=== PATIENT | female | born 1940 | race Caucasian/White ===

== ENCOUNTER 2022-11-09 11:36 | Outpatient (CLI) | payer MEDICARE, BC, SELFPAY ==
[2022-11-09 16:16] LABS: Chloride* 103 mmol/L (96-114); Sodium* 137 mmol/L (135-149)
[2022-11-09 16:17] LABS: Potassium* 4.7 mmol/L (3.6-5.1)
[2022-11-09 16:19] LABS: Alanine Aminotransferase* 15 U/L (4-35); Carbon Dioxide* 28 mmol/L (20-32); Cholesterol* 161 mg/dL (90-199); Creatinine* 0.9 mg/dL (0.5-1.5); Estimated Glomerular Filt Rate 63 ml/min
[2022-11-09 16:20] LABS: Blood Urea Nitrogen* 21 mg/dL (7-30); Glucose* 105 mg/dL (60-115); HDL Cholesterol* 53 mg/dL (>=50); LDL Cholesterol Calculated 64 mg/dL (<100); Triglycerides* 220 mg/dL (40-149)
[2022-11-09 16:33] LABS: Vitamin D 25 Hydroxy* 30 ng/mL (30-80)
[2022-11-09 17:06] LABS: Vitamin B12* 985 pg/mL (243-894)
== END 2022-11-09 11:37 | disposition home or self-care (01) ==
PROVIDERS: PCP Family Medicine; Visit Provider Family Medicine
DX: I10 Essential (primary) hypertension (principal); E03.9 Hypothyroidism, unspecified; E53.8 Deficiency of other specified B group vitamins; E55.9 Vitamin D deficiency, unspecified; E78.5 Hyperlipidemia, unspecified; K76.0 Fatty (change of) liver, not elsewhere classified; I48.91 Unspecified atrial fibrillation
CPT/HCPCS: 80048; 80061; 82306; 82607; 84443; 84460

== ENCOUNTER 2022-11-26 14:48 | Emergency (ER) | payer MEDICARE, BC, SELFPAY ==
[2022-11-26] VITALS (11 sets, daily range): BP systolic 150–211; BP diastolic 84–99; PULSE 59–68; RESP 18–20; TEMP 36.1; O2SAT 96–99; BMI 35.3
--- NOTE | 2022-11-26 15:17 | ED_ITS ---
HPI - General Adult General Date Seen: 11/26/22 Chief complaint: Lower Extremity Swelling Stated complaint: Swelling left leg Time Seen by Provider: 11/26/22 14:55 Source: patient and family Mode of arrival: ambulatory Limitations: no limitations History of Present Illness HPI narrative: Patient is an 82-year-old woman who says that she has a history of neuropathy in her feet. A couple of weeks ago, she says that Dr. Burkett started her on gabapentin 100 mg nightly. She says that she is not tolerating this medication well. Ever since then, she says that she is feeling like she has more fluid in her legs, and she has developed pain in her medial left knee. Her daughter says that she seems out of it on gabapentin. She wants to taper off of this medication. She feels like she needs to get rid of the fluid in her legs as it is uncomfortable. She has not had shortness of breath or chest pain. Also she notes that her blood pressure is higher than usual. She is also worried she might have a blood clot. She does take Xarelto for atrial fibrillation. She has not had any other leg or calf pain aside from the medial knee pain. There has been no erythema or warmth noted in the calves. She tells me that she takes 2 water pills for the fluid in her legs, but I only see Lasix listed in her med list. Related Data Home Medications Medication Instructions Recorded Confirmed cholecalciferol (vitamin D3) 1,250 1,250 mcg PO QWEEK 08/10/22 11/09/22 mcg (50,000 unit) capsule mecobalamin (vitamin B12) 1,000 1,000 mcg PO QDAY 11/09/22 11/09/22 mcg chewable tablet Previous Rx's Medication Instructions Recorded furosemide 40 mg tablet 40 mg PO QAM #90 tabs 11/09/22 gabapentin 100 mg capsule 100 mg PO QHS #60 caps 11/09/22 levothyroxine 112 mcg tablet 112 mcg PO QDAY #90 tabs 11/09/22 losartan 100 mg tablet 100 mg PO QDAY #90 tabs 11/09/22 rivaroxaban 20 mg tablet 20 mg PO QPM #90 tabs 11/09/22 rosuvastatin 10 mg tablet 10 mg PO QDAY #90 tabs 11/09/22 sotalol 80 mg tablet 80 mg PO BID #180 tabs 11/09/22 potassium chloride 20 mEq See Rx Instructions PO BID #90 tabs 11/10/22 tablet,extended release Allergies Allergy/AdvReac Type Severity Reaction Status Date / Time lisinopril Allergy Unknown Unknown Verified 11/26/22 15:03 lovastatin Allergy Unknown Unknown Verified 11/26/22 15:03 Review of Systems Status of ROS: Reports: 10 or more systems reviewed and unremarkable except as noted in History and below [facility] Medical History (Updated 11/26/22 @ 16:16 by Serina Gilbert MD) Atrial fibrillation B12 deficiency Essential (primary) hypertension Fatty liver History of uterine cancer Hx of colonic polyp Hyperlipidemia Hypothyroidism Peripheral neuropathy Vitamin D deficiency Surgical History (Updated 08/10/22 @ 10:50 by Michelle Pacheco ([facility])) History of open reduction and internal fixation (ORIF) procedure History of total abdominal hysterectomy and bilateral salpingo-oophorectomy Social History (Updated 08/10/22 @ 10:51 by Michelle Pacheco ([facility])) Narrative: , kids, non-smoker, No EtOH Smoking Status: Never smoker Little interest or pleasure in doing things: not at all Feeling down, depressed, or hopeless: more than half the days (winter) Exam Narrative: Exam Narrative: Vital signs as noted above. In general, an alert, nontoxic elderly woman. She is breathing easily. Head: Normocephalic, atraumatic. Eyes: Pupils are equal reactive. Extraocular movements are full. Conjunctivae are normal. ENT: Mucous membranes are moist. Neck: Supple without lymphadenopathy. Heart: Regular rate and rhythm. No murmur or rub. Lungs: Clear bilaterally. No increased work of breathing, crackles or wheezes. Extremities: She has trace pitting edema in her legs bilaterally, her legs are somewhat large in general. She does not have any calf tenderness. She has point tenderness over the medial knee on the left. There is no effusion or erythema. Neurologic: Patient is alert and oriented to person and place. Speech is fluent. Face is symmetric. Moves all extremities equally. Affect: Normal. Skin: Warm and dry. Well perfused. Const: Vital Signs, click to edit/add: Vital Signs - 24 hr 11/26/22 14:57 11/26/22 15:31 11/26/22 16:10 Temperature 97.0 F L Pulse Rate 68 Pulse Rate [Pulse Oximeter] 63 Respiratory Rate 18 20 Blood Pressure 175/84 H 158/96 H Blood Pressure [Ri ght Upper Arm] 211/90 H Pulse Oximetry 98 98 Oxygen Delivery Me thod Room Air 11/26/22 16:24 11/26/22 16:25 11/26/22 16:30 Temperature Pulse Rate 61 62 Pulse Rate [Pulse Oximeter] Respiratory Rate Blood Pressure 162/94 H Blood Pressure [Ri ght Upper Arm] Pulse Oximetry 97 98 Oxygen Delivery Me thod 11/26/22 16:32 Temperature Pulse Rate 62 Pulse Rate [Pulse Oximeter] Respiratory Rate Blood Pressure 168/93 H Blood Pressure [Ri ght Upper Arm] Pulse Oximetry 99 Oxygen Delivery Me thod Documenting provider has reviewed patient's vital signs: yes Course Course Hospital Course: I have discussed with her that I think it is perfectly reasonable for her to discontinue the gabapentin. She is on a very small dose and I do not think she needs to taper off of this I think she can just stop. In terms of her perceived increase fluid in her legs, I am going to just check a couple of labs and if renal function and electrolytes look okay, we can give her an extra dose of Lasix here and perhaps increase her dose for a couple of days and trying to pull off a little extra fluid. I am also going to just check her TSH here and make sure that she is therapeutic on her thyroid replacement. She is not short of breath, lungs are clear, O2 sats are normal. I do not have any reason to suspect that she is significantly fluid overloaded from a cardiac standpoint. She is markedly hypertensive today, will recheck that, will need to have her follow up with primary care for reassessment of her blood pressure and also she can discuss an alternative medication for her neuropathy if she would like. I am not concerned about DVT in this patient. She is anticoagulated with Xarelto, has symmetric lower extremity swelling, with some focal pain in her medial knee. Clinically, symptoms are not suggestive of DVT. Basic metabolic panel is normal, BUN is 22, creatinine is 0.9. I do think there is room to give her a little extra Lasix for a few days. I gave her 40 mg IV here. Her BNP is elevated mildly at 647. Her TSH is still pending at this time. Plan will be for discharge home. I have told her that she can increase her Lasix by 20 mg a day for few days. I would like her to follow up with Dr. Thad Vines in the next week or so to reassess blood pressure, edema, and peripheral neuropathy. Return for significant changes such as severe edema, erythema, pain, fever etcetera. Vital Signs Vital signs: Initial Vital Signs Temperature 97.0 F L 11/26/22 14:57 Temperature Source Temporal Artery Scan 11/26/22 14:57 Pulse Rate 63 11/26/22 14:57 Pulse Rhythm 11/26/22 14:57 Pulse Strength 3+ Normal 11/26/22 14:57 Respiratory Rate 18 11/26/22 14:57 Blood Pressure 211/90 H 11/26/22 14:57 Blood Pressure Mean 130 11/26/22 14:57 Blood Pressure Position Sitting 11/26/22 14:57 Pulse Oximetry 98 11/26/22 14:57 Oxygen Delivery Method 11/26/22 14:57 Vital Signs Temperature 97.0 F L 11/26/22 14:57 Pulse Rate 63 11/26/22 14:57 Respiratory Rate 18 11/26/22 14:57 Blood Pressure 211/90 H 11/26/22 14:57 Pulse Oximetry 98 11/26/22 14:57 Oxygen Delivery Method 11/26/22 14:57 Temperature 97.0 F L 11/26/22 14:57 Pulse Rate 59 L 11/26/22 16:53 Respiratory Rate 20 11/26/22 16:10 Blood Pressure 150/99 H 11/26/22 17:16 Pulse Oximetry 96 11/26/22 16:53 Oxygen Delivery Method 11/26/22 14:57 Medical Decision Making Lab Data Labs: Lab Results 11/26/22 11/26/22 Range/Units 15:30 15:30 Sodium 138 (135-149) mmol/L Potassium 3.7 (3.6-5.1) mmol/L Chloride 102 (96-114) mmol/L Carbon Dioxide 32 (20-32) mmol/L BUN 22 (7-30) mg/dL Creatinine 0.9 (0.5-1.5) mg/dL Estimated Creat Clear 30.08 Estimated GFR 63 ml/min Glucose 122 H (60-115) mg/dL Calcium 8.9 (8.4-10.6) mg/dL NT-Pro-B Natriuret Pep 647 pg/mL TSH 1.890 (0.270-4.200) uIU/mL Discharge Plan Discharge Clinical Impression: Bilateral lower extremity edema, Peripheral neuropathy Patient Disposition: Home, Self-Care Condition: Stable Instructions: Peripheral Neuropathy (ED), Leg Edema (ED) Additional Instructions: Okay to take an extra 20 mg of Lasix for the next few days. Follow-up with Dr. Burkett in the next week or 2 to recheck blood pressure, neuropathy, edema. Return for worsening swelling, new symptoms such as redness, fever, or other worsening symptoms. Prescriptions: No Action mecobalamin (vitamin B12) 1,000 mcg tablet,chewable 1,000 mcg PO QDAY gabapentin 100 mg capsule 100 mg PO QHS Qty: 60 1RF Rx Instructions: 1 QHS x 2 weeks then 2 QHS losartan 100 mg tablet 100 mg PO QDAY Qty: 90 3RF furosemide 40 mg tablet 40 mg PO QAM Qty: 90 3RF rivaroxaban 20 mg tablet 20 mg PO QPM Qty: 90 3RF Rx Instructions: must administer with evening meal rosuvastatin 10 mg tablet 10 mg PO QDAY Qty: 90 3RF sotalol 80 mg tablet 80 mg PO BID Qty: 180 3RF cholecalciferol (vitamin D3) 1,250 mcg (50,000 unit) capsule 1,250 mcg PO QWEEK levothyroxine 112 mcg tablet 112 mcg PO QDAY Qty: 90 0RF potassium chloride 20 mEq tablet extended release See Rx Instructions PO BID Qty: 90 2RF Rx Instructions: orally twice a day; 2 Qam and 1 Qpm Follow Up/Referrals: Matt Burkett MD [Primary Care Provider] - Stand Alone Forms: [employer] Info Instructions
[2022-11-26 15:47] LABS: Chloride* 102 mmol/L (96-114)
[2022-11-26 15:48] LABS: Potassium* 3.7 mmol/L (3.6-5.1); Sodium* 138 mmol/L (135-149)
[2022-11-26 15:50] LABS: Creatinine* 0.9 mg/dL (0.5-1.5); Est. Creatinine Clearance* 30.08; Estimated Glomerular Filt Rate 63 ml/min
[2022-11-26 15:51] LABS: Blood Urea Nitrogen* 22 mg/dL (7-30); Calcium* 8.9 mg/dL (8.4-10.6); Carbon Dioxide* 32 mmol/L (20-32); Glucose* 122 mg/dL (60-115)
[2022-11-26 16:01] LABS: NT Pro B Type NatriureticPept* 647 pg/mL
[2022-11-26] MEDS: FUROSEMIDE 10 MG/ML inj 40 MG IVP (16:25)
== END 2022-11-26 17:21 | disposition home or self-care (01) ==
PROVIDERS: Emergency Provider Emergency Medicine; PCP Family Medicine
DX: R60.0 Localized edema (principal); G62.9 Polyneuropathy, unspecified
CPT/HCPCS: 36415; 80048; 83880; 84443; 96374; 99283; 99284; J1940

== ENCOUNTER 2023-04-14 12:35 | Outpatient (CLI) | payer MEDICARE, BC, SELFPAY | END 2023-04-14 12:36 | disposition home or self-care (01) | PROVIDERS: PCP Family Medicine; Visit Provider Family Medicine | DX: I10 Essential (primary) hypertension (principal); E03.9 Hypothyroidism, unspecified; E78.5 Hyperlipidemia, unspecified | CPT/HCPCS: 80048 ==

== ENCOUNTER 2023-06-15 11:01 | Outpatient (CLI) | payer MEDICARE, BC, SELFPAY | END 2023-06-15 11:02 | disposition home or self-care (01) | PROVIDERS: PCP Family Medicine; Visit Provider Family Medicine | DX: I11.0 Hypertensive heart disease with heart failure (principal); I50.9 Heart failure, unspecified; E03.9 Hypothyroidism, unspecified; E78.5 Hyperlipidemia, unspecified; I48.0 Paroxysmal atrial fibrillation; Z79.01 Long term (current) use of anticoagulants; E55.9 Vitamin D deficiency, unspecified | CPT/HCPCS: 80048; 83880 ==

== ENCOUNTER 2023-10-13 13:27 | Outpatient (CLI) | payer MEDICARE, BC, SELFPAY | END 2023-10-13 13:28 | disposition home or self-care (01) | PROVIDERS: PCP Family Medicine; Visit Provider Family Medicine | DX: E78.2 Mixed hyperlipidemia (principal); I10 Essential (primary) hypertension; E53.8 Deficiency of other specified B group vitamins; E55.9 Vitamin D deficiency, unspecified; E03.9 Hypothyroidism, unspecified; I50.9 Heart failure, unspecified | CPT/HCPCS: 80048; 80061; 82607; 84443; 85025 ==

== ENCOUNTER 2024-01-18 12:51 | Outpatient (CLI) | payer MEDICARE, BC, SELFPAY ==
--- OUTSIDE RECORDS SUMMARY | 2024-01-18 12:58 | XMS_ITS | Clinical Summary ---
Author Name Unknown Organization [facility] Address [place], [place] [address] Care Team Providers Care Line Tender Flakeboard Name Role Phone Matt Burkett MD Primary Care Provider + Allergies Active Allergy Reactions Criticality Noted Date Comments Lisinopril Cough 06/06/2020 Lovastatin Palpitations 11/14/2016 Medications Medication Sig Dispensed Refills Start Date End Date Status acetaminophen (TYLENOL EXTRA STRGTH) 500 mg tablet Take 2 tablets by mouth every 6 hours if needed. Max acetaminophen dose: 4000mg in 24 hrs. 0 12/06/2019 Active WalkerIndications:Af tercare following surgery for injury or trauma Walker with wheels,seat,hand brakes,and basket for home use. Length of need: 6 months. 1 Device 02/05/2020 Active rivaroxaban (Xarelto) 20 mg tabletIndications:At rial flutter, unspecified type (HC) Take 1 Tablet (20 mg) by mouth once daily with evening meal. 90 Tablet 3 10/14/2022 Active losartan (COZAAR) 100 mg tabletIndications:HT N (hypertension) Take 1 Tablet (100 mg) by mouth once daily. 90 Tablet 3 10/14/2022 Active potassium chloride (K-DUR) 20 mEq Extended-Release tabletIndications:Es sential hypertension Take 2 Tablets (40 mEq) by mouth two times daily with meals. More refills provided at completion of appointment scheduled 10/14/[address] Artis. 360 Tablet 3 10/14/2022 Active rosuvastatin (CRESTOR) 10 mg tabletIndications:Ab normal EKG,Fatty liver,Vascular calcification,Other hyperlipidemia Take 1 Tablet (10 mg) by mouth at bedtime. 90 Tablet 3 10/14/2022 Active sotaloL (BETAPACE) 80 mg tabletIndications:At rial flutter, unspecified type (HC) Take 1 Tablet (80 mg) by mouth every 12 hours. 180 Tablet 3 10/14/2022 Active doxazosin (CARDURA) 2 mg tablet Take 2 mg by mouth at bedtime. 03/15/2023 Active levothyroxine (SYNTHROID) 112 mcg tablet Take 112 mcg by mouth once daily. 03/16/2023 Active furosemide (LASIX) 80 mg tablet Take 80 mg by mouth every morning. 10/29/2023 Active spironolactone (ALDACTONE) 25 mg tablet Take 25 mg by mouth once daily. 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 Reynoso 12/06/2019 Right medial tibial plateau fracture 11/15/2019 PAF (paroxysmal atrial fibri llation) and flutter. Now on sotalol 80 bid + Xarelto 12/06/2018 Abnormal EKG 12/05/2018 Fatty liver 12/05/2018 Vascular calcifications - seen on CT 12/05/2018 Essential hypertension 05/04/2018 ACP (advance care planning) 11/17/2016 Overview: Full code Wide-complex tachycardia 11/14/2016 Class 1 obesity in adult 08/05/2016 Nonspecific abnormal electrocardiogram (ECG) (EK G) 01/04/2009 Hyperlipidemia Unspecified hypothyroidism Vitamin B 12 deficiency Polyp of colon Abnormal CT scan, pelvis Resolved Problems Problem Noted Date Diagnosed Date Resolved Date HTN (hypertension) 8 Encounters Date Type Department Care Team Description 11/03/2023 11:30 AM PIECE WORKER Office Visit [facility] [address] [facility] [place] [id number] Berny Martinez MD Follow Up (6 month follow up ) 11/03/2023 Travel from Last 3 Months Immunizations Name Administration Dates Next Due COVID-19 vaccine (SeeToo-Bio NTech 30mcg/0.3mL) PF, MDV 12/26/2020,12/05/2020 Influenza A (H1N1), Inactivated 10/29/2009 Influenza, High-dose Inactivated 07/16/2016,11/0 03/2015,07/18/2014 Influenza, IIV3 (Age >=3 years) 07/11/2013,08/12,07/29/2009 Influenza, Inactivated AIIV4 (Age 65+ Years) Preserv Free 07/11/2020 Influenza, Inactivated IIV3 (Age 65+ Years) Preserv Free 07/25/2019,08/05/2018,07/19/2017 Pneumococcal Poly,23-Valent (Pneumovax) 07/28/20 07 Pneumococcal conj 13-Valent (Prevnar 13) 015 Td (Age >=7 Years) 12/18/2010 Zoster (Zostavax-ZVL, live) 12/18/2010 Family History Medical History Relation Name Comments Diabetes Brother Diabetes Father Cancer-breast No Family History Relation Name Status Comments Brother Father Social History Tobacco Use Types Packs/Day Years Used Date Smoking Tobacco: Never Smokeless Tobacco: Never Tobacco Cessation:Counseling Given: No Alcohol Use Standard Drinks/Week Comments No 0 (1 standard drink = 0.6 oz pur e alcohol) PHQ-2 Answer Date Recorded PHQ-2 Score 0 12/10/2018 Social Connections Answer Date Recorded Frequency of Communication with Friends and Fami ly 0 04/05/2023 Financial Resource Strain Answer Date R ecorded Difficulty of Paying Living Expenses 3 04/05/2023 Difficulty of Paying Living Expenses Not on file 04/05/2023 Food Insecurity Answer Date Recorded Worried About Running Out of Food in the Last Ye ar 1 04/05/2023 Transportation Needs Answer Date Record ed Lack of Transportation (Medical) 1 04/05/2023 Housing Stability Answer Date Recorded Unable to Pay for Housing in the Last Year 1 04/07/2023 Sex and Gender Information Value Date Recorded Sex Assigned at Not on file Gender Identity Not on file Sexual Orientation Not on file Obstetrics History Last Filed Vital Signs Vital Sign Reading Time Taken Comments Blood Pressure 116/68 11/03/2023 11:17 AM PIECE WORKER Pulse 60 11/03/2023 11:17 AM PIECE WORKER Temperature 36.6 ??C (97.9 ??F) 04/08/2023 7:19 AM CD T Respiratory Rate 18 04/08/2023 7:19 AM CDT Oxygen Saturation 98% 11/03/2023 11:17 AM PIECE WORKER Inhaled Oxygen Concentration - - Weight 81.7 kg (180 lb 3.2 oz) 11/03/2023 11:17 AM PIECE WORKER Height 157.5 cm (5' 2) 04/04/2023 10:11 AM CDT Body Mass Index 32.96 04/04/2023 10:11 AM CDT Plan of Treatment Health Maintenance Due Date Last Done Comments Zoster (shingles) series for age 50+ (2 of 3) 02/12/2011 12/18/2010 Medicare Wellness for age 65+ 06/09/2017 06/08/2016 Depression screening for age 12+ 02/02/2019 02/02/2018, 04/29/2017, 06/08/2016, Additional history exists Tetanus booster 12/18/2020 12/18/2010 BMI (ht and wt on same day) for age 18+ 10/01/2022 10/01/2021, 05/14/2021, 03/12/2021, Additional history exists COVID-19 vaccine series ( season) 2023 08/05/2022, 07/24/2021, 12/26/2020, Additional history exists Influenza for age 65+ 06/11/2024 07/11/2020 , 07/25/2019, 08/05/2018, Additional history exists [facility] Com[facility] 12[facility]18/2006 [facility] Pneumococcal series for age 65+ Completed 5, 07/28/2007 DEXA/DXA scan for age 65+ Completed 2015, 09/28/2011, 09/28/2011 Medical Devices Implanted Type Area Salsa Dance Instructor Device Identifier Shelf Expiration Date Model / Serial / Lot Evos 3.5mm P/A M-P Tibia [address] 8h Implanted:Qty: 1 on 11/16/2019 by Delvis Reynoso MD at [facility] Right: Knee [id number] / / Description:EVOS 3.5MM P/A M -P TIBIA [address] 8H Screw Locking 3.5 X 65 Implanted:Qty: 1 on 11/16/2019 by Delvis Reynoso MD at [facility] Right: Knee [id number] / / Description:SCREW LOCKING 3. 5 X 65 Screw Bone 3.5x38mm Evos Small Cortex Slf Tppng Implanted:Qty: 1 on 11/16/2019 by Delvis Reynoso MD at [facility] Right: Knee [id number] / / Description:SCREW BONE 3.5X3 8MM EVOS SMALL CORTEX SLF TPPNG Screw Bone 3.5x70mm Evos Small Cortex Slf Tppng Implanted:Qty: 1 on 11/16/2019 by Delvis Reynoso MD at [facility] Right: Knee [id number] / / Description:SCREW BONE 3.5X7 0MM EVOS SMALL CORTEX SLF TPPNG Screw Bone 3.5x75mm Evos Small Cortex Slf Tppng Implanted:Qty: 1 on 11/16/2019 by Delvis Reynoso MD at [facility] Right: Knee [id number] / / Description:SCREW BONE 3.5X7 5MM EVOS SMALL CORTEX SLF TPPNG Screw Bone 3.5x28mm Evos Small Cortex Slf Tppng Implanted:Qty: 1 on 11/16/2019 by Delvis Reynoso MD at [facility] Right: Knee [id number] / / Description:SCREW BONE 3.5X2 8MM EVOS SMALL CORTEX SLF TPPNG Screw Bone 3.5x32mm Evos Small Cortex Slf Tppng Implanted:Qty: 1 on 11/16/2019 by Delvis Reynoso MD at [facility] Right: Knee [id number] / / Description:SCREW BONE 3.5X3 2MM EVOS SMALL CORTEX SLF TPPNG Screw Bone 3.5x22mm Evos Small Cortex Slf Tppng Implanted:Qty: 2 on 11/16/2019 by Delvis Reynoso MD at [facility] Right: Knee [id number] / / Description:SCREW BONE 3.5X2 2MM EVOS SMALL CORTEX SLF TPPNG Screw Locking 3.5 Implanted:Qty: 1 on 11/16/2019 by Delvis Reynoso MD at [facility] Right: Knee [id number] / / Description:SCREW LOCKING 3. 5 Explanted Type Area Salsa Dance Instructor Device Identifier Shelf Expiration Date Model / Serial / Lot Screw Bone 3.5x36mm Evos Small Cortex Slf Tppng Explanted:Qty: 1 on 11/16/2019 by Delvis Reynoso MD at [facility] Right: Knee [id number] / / Description:SCREW BONE 3.5X3 6MM EVOS SMALL CORTEX SLF TPPNG Carmenza-Loc K-Wire 1.6mm Explanted:Qty: 2 on 11/16/2019 by Delvis Reynoso MD at [facility] Right: Knee [id number] / / Description:CARMENZA-LOC K-WIRE 1.6MM Procedures Procedure Name Priority Date/Time Associated Diagnosis Comments XR DXA BONE DENSITY 2 SITES AXIAL Routine 06/16/2016 10:53 AM CDT Menopause from Last 3 Months or Most Recently Relevant to Health Maintenance Results * (ABNORMAL) XR DXA BONE DENSITY 2 SITES AXIAL (06/16/2016 10:53 AM CDT) Anatomical Region Laterality Modality Spine, HIPS, HIPL, HIPR Bone Den sitometry Narrative 06/19/2016 1:50 PM CDT Please see scanned document for results of this study. Tr Harrison MD DEXA from Last 3 Months or Most Recently Relevant to Health Maintenance Insurance Payer Benefit Plan / Group Subscriber ID Effective Dates Phone Address Type [facility] PB ONLY [id number] 2019-Presen t [address] [id number] MEDICARE PART B - HB USE ONLY MEDICARE PART B HB ONLY [id number] 2003-Presen t ATTN: CLAIMS [address] [place] [address] MEDICARE PART B - HB USE ONLY MEDICARE PART B HB ONLY [id number] 2003-Presen t ATTN: CLAIMS [address] [place] [address] MEDICARE PART A - HB USE ONLY MEDICARE PART A HB ONLY [id number] 2003-Presen t ATTN: CLAIMS [address] [place] [address] [employer] [place] [employer] [place] [id number] 5-Presen t [address] [place] [address] [employer] [place] [employer] BL[employer] MR PB ONLY [id number] 2021-Presen t [address] [address] [place] [address] [employer] [place] [employer] [place] [id number] 2003- Presen t [address] [place] [address] Advance Directives Documents on File Type Date Recorded Patient Device Sales Consultant Expl anation Healthcare Directive 04/05/2023 023 POLST 11/18/2019 * Full Code (Latest Code Status on File) Date Activated Date Inactivated Comments 04/04/2023 2:40 PM 04/08/2023 1:22 PM Question Answer Comments Code Status Discussion: Reviewed Preferences * Full Code Date Activated Date Inactivated Comments 11/15/2019 8:53 PM 11/18/2019 3:35 PM * Full Code Date Activated Date Inactivated Comments 12/02/2018 8:45 AM 12/02/2018 1:53 PM Question Answer Comments Code Status Discussion: Discussed * Full Code Date Activated Date Inactivated Comments 11/14/2016 7:15 PM 11/17/2016 6:51 PM Question Answer Comments Code Status Discussion: Discussed Care Teams Line Tender Flakeboard Relationship Specialty Start Date End Date Matt Burkett MD [address] [place] [address] PCP - General Family Practice 04/08/23
== END 2024-01-18 12:52 | disposition home or self-care (01) ==
PROVIDERS: PCP Family Medicine; Visit Provider Family Medicine
DX: E53.8 Deficiency of other specified B group vitamins (principal); E55.9 Vitamin D deficiency, unspecified; I10 Essential (primary) hypertension
CPT/HCPCS: 80048; 82306; 82607

== ENCOUNTER 2024-06-26 14:42 | Outpatient (CLI) | payer MEDICARE, BC, SELFPAY ==
--- OUTSIDE RECORDS SUMMARY | 2024-06-26 14:44 | XMS_ITS | Clinical Summary ---
Author Organization [employer] [facility] Address [place], [place] [address] Care Team Providers Care Personal Injury Litigation Paralegal Name Role Phone Matt Burkett MD Primary [...] at bedtime. 90 Tablet 3 10/14/2022 Active levothyroxine (SYNTHROID) 112 mcg tablet Take 112 mcg by mouth once daily. 03/16/2023 Active furosemide (LASIX) 80 mg tablet Take 80 mg by mouth every morning. 10/29/2023 Active spironolactone (ALDACTONE) 25 mg tablet Take 25 mg by mouth once daily. 10/12/2023 Active sotaloL (BETAPACE) 80 mg tabletIndications:At rial flutter, unspecified type (HC) Take 1 Tablet (80 mg) by mouth every 12 hours. 180 Tablet 3 05/03/2024 Active Hospital, Clinic, or Other Facility Administered Medication Ordered Dose Route Frequency Start Date End Date Status cyanocobalamin 1,000 mcg injection (VITAMIN B12)Indications:Vitam in B12 deficiency 1000 mcg IM Q 4 WEEKS (28 days) 12/07/2019 Active Active Problems Problem Noted Date [...] hypertension 05/04/2018 ACP (advance care planning) 11/17/2016 Overview (11/17/2016): Full code Wide-complex tachycardia 11/14/2016 Class 1 obesity in adult 08/05/2016 Nonspecific abnormal electrocardiogram (ECG) (EK G) 01/04/2009 Hyperlipidemia Unspecified hypothyroidism Vitamin B 12 deficiency Polyp of colon Abnormal CT scan, pelvis Resolved Problems Problem Noted Date Diagnosed Date Resolved Date HTN (hypertension) 8 Encounters Date Type Department Care Team Description 05/03/2024 11:30 AM CDT Office Visit [facility] at [address] [phone] Kyara Jain MD Follow Up (6 month) 05/03/2024 Travel from Last 3 Months Immunizations Name Administration Dates Next Due COVID-19 vaccine (Adeptence NTSynerchip 30mcg/0.3mL) ALEJO PALMA 12/26/2020,12/05/2020 Influenza A (H1N1), Inactivated 10/29/2009 Influenza, [...] of Communication with Friends and Fami ly Not on file 04/10/2024 Financial Resource Strain Answer Date R ecorded [...] Sign Reading Time Taken Comments Blood Pressure 118/70 05/03/2024 11:24 AM CDT Pulse 60 05/03/2024 11:24 AM CDT Temperature 36.6 ??C (97.9 ??F) 04/08/2023 7:19 AM CD T Respiratory Rate 18 04/08/2023 7:19 AM CDT Oxygen Saturation 100% 05/03/2024 11: 24 AM CDT Inhaled Oxygen Concentration - - Weight 80.2 kg (176 lb 12.8 oz) 024 11:24 AM CDT Height 157.5 cm (5' 2) 04/04/2023 10:1 1 AM CDT Body Mass Index 32.34 04/04/2023 10:11 AM CDT Plan of Treatment Health Maintenance Due Date Last Done Comments RSV vaccine for adults or (1 - 1-dose 60+ series) 1998 Zoster (shingles) series for age 50+ (2 of 3) 02/12/2011 12/18/2010 Medicare Wellness for age 65+ 06/09/2017 06/08/2016 Depression screening for age 12+ 02/02/2019 02/02/2018, 04/29/2017, 06/08/2016, Additional history exists Tetanus booster 12/18/2020 12/18/2010 BMI (ht and wt on same day) for age 18+ 10/01/2022 10/01/2021, 05/14/2021, 03/12/2021, Additional history exists COVID-19 vaccine series ( season) 2024 08/05/2022, 07/24/2021, 12/26/2020, Additional history exists Influenza for age 65+ 06/11/2024 07/11/2020 , 07/25/2019, 08/05/2018, Additional history exists Tdap Completed 12/18/2006 ([facility]) Pneumococcal series for age 65+ Completed 5, 07/28/2007 DEXA/DXA scan for age 65+ Completed 2015, 09/28/2011, 09/28/2011 Medical Devices Implanted Type Area Information Technology Security Manager Device Identifier Shelf Expiration Date Model / Serial / Lot Evos 3.5mm P/A M-P [address] 8h Implanted:Qty: 1 on 11/16/2019 by Delvis Reynoso MD at [facility] Right: Knee [id number] / / Description:EVOS 3.5MM P/A M -P [address] 8H Screw Locking 3.5 X 65 Implanted:Qty: 1 on 11/16/2019 by Delvis Reynoso MD at [facility] Right: Knee [id number] / / Description:SCREW LOCKING 3. 5 X 65 Screw Bone 3.5x38mm Evos Small Cortex Slf Tppng Implanted:Qty: 1 on 11/16/2019 by Delvis Reynoso MD at [facility] Right: Knee [id number] / / Description:SCREW BONE 3.5X3 8MM EVOS SMALL CORTEX SLF TPPNG Screw Bone 3.5x70mm Evos Small Cortex Slf Tppng Implanted:Qty: 1 on 11/16/2019 by Delvis Reynoso MD at [facility] Right: Knee [id number] / / Description:SCREW BONE 3.5X7 0MM EVOS SMALL CORTEX SLF TPPNG Screw Bone 3.5x75mm Evos Small Cortex Slf Tppng Implanted:Qty: 1 on 11/16/2019 by Delvis Reynoso MD at [facility] Right: Knee [id number] / / Description:SCREW BONE 3.5X7 5MM EVOS SMALL CORTEX SLF TPPNG Screw Bone 3.5x28mm Evos Small Cortex Slf Tppng Implanted:Qty: 1 on 11/16/2019 by Delvis Reynoso MD at [facility] Right: Knee [id number] / / Description:SCREW BONE 3.5X2 8MM EVOS SMALL CORTEX SLF TPPNG Screw Bone 3.5x32mm Evos Small Cortex Slf Tppng Implanted:Qty: 1 on 11/16/2019 by Delivs Reynoso MD at [facility] Right: Knee [id number] / / Description:SCREW BONE 3.5X3 2MM EVOS SMALL CORTEX SLF TPPNG Screw Bone 3.5x22mm Evos Small Cortex Slf Tppng Implanted:Qty: 2 on 11/16/2019 by Delvis Reynoso MD at [facility] Right: Knee [id number] / / Description:SCREW BONE 3.5X2 2MM EVOS SMALL CORTEX SLF TPPNG Screw Locking 3.5 Implanted:Qty: 1 on 11/16/2019 by Delvis Reynoso MD at [facility] Right: Knee [id number] / / Description:SCREW LOCKING 3. 5 Explanted Type Area Information Technology Security Manager Device Identifier Shelf Expiration Date Model / Serial / Lot Screw Bone 3.5x36mm Evos Small Cortex Slf Tppng Explanted:Qty: 1 on 11/16/2019 by Delvis Reynoso MD at [facility] Right: Knee [id number] / / Description:SCREW BONE 3.5X3 6MM EVOS SMALL CORTEX SLF TPPNG Carmenza-Loc K-Wire 1.6mm Explanted:Qty: 2 on 11/16/2019 by Delvis Reynoso MD at [facility] Right: Knee [id number] / / Description:CARMENZA-LOC K-WIRE 1.6MM Procedures Procedure Name Priority Date/Time Associated Diagnosis Comments EKG 12 LEAD Routine 05/03/2024 12:00 AM CDT Atrial flutter, unspecified type (HC) XR DXA BONE DENSITY 2 SITES AXIAL Routine 06/16/2016 10:53 AM CDT Menopause from Last 3 Months or Most Recently Relevant to Health Maintenance Results * EKG 12 LEAD (05/03/2024 12:00 AM CDT) Kyara Jain MD EKG ORD * (ABNORMAL) XR DXA BONE DENSITY 2 SITES AXIAL (06/16/2016 10:53 AM CDT) Anatomical Region Laterality Modality Spine, HIPS, HIPL, HIPR Bone Den sitometry Narrative 06/19/2016 1:50 PM CDT Please see scanned document for results of this study. Tr Harrison MD DEXA from Last 3 Months or Most Recently Relevant to Health Maintenance Advance Directives Documents on File Type Date Recorded Patient Talent Acquisition Manager Expl anation Healthcare Directive 04/05/2023 023 POLST [...] Comments Code Status Discussion: Discussed Care Teams Personal Injury Litigation Paralegal Relationship Specialty Start Date End Date Matt Burkett MD [address] [place] [id number] PCP - General Family Practice 04/08/23
== END 2024-06-26 14:43 | disposition home or self-care (01) ==
LOC: FBOREF 14:43
PROVIDERS: PCP Family Medicine; Visit Provider Family Medicine
DX: I50.9 Heart failure, unspecified (principal); I10 Essential (primary) hypertension
CPT/HCPCS: 80048

== ENCOUNTER 2025-01-17 11:18 | Outpatient (CLI) | payer MEDICARE, BC, SELFPAY | END 2025-01-17 11:19 | disposition home or self-care (01) | PROVIDERS: PCP Family Medicine; Visit Provider Family Medicine | DX: E78.2 Mixed hyperlipidemia (principal); I10 Essential (primary) hypertension; E03.9 Hypothyroidism, unspecified; E55.9 Vitamin D deficiency, unspecified; E53.8 Deficiency of other specified B group vitamins; K76.0 Fatty (change of) liver, not elsewhere classified | CPT/HCPCS: 80048; 80061; 84443; 84460 ==

== ENCOUNTER 2025-06-18 11:39 | Outpatient (CLI) | payer MEDICARE, BC, SELFPAY | END 2025-06-18 11:40 | disposition home or self-care (01) | PROVIDERS: PCP Family Medicine; Visit Provider Family Medicine | DX: R53.83 Other fatigue (principal) | CPT/HCPCS: 80048; 83735; 84443; 85025 ==

== ENCOUNTER 2025-08-17 09:36 | Outpatient (CLI) | payer MEDICARE, BC, SELFPAY | END 2025-08-17 09:37 | disposition home or self-care (01) | LOC: NFLDREF 08-22 07:54 | PROVIDERS: PCP Family Medicine; Referring Provider Family Medicine; Visit Provider Family Medicine | DX: N39.0 Urinary tract infection, site not specified (principal) | CPT/HCPCS: 87086 ==

== ENCOUNTER 2025-09-19 13:09 | Outpatient (CLI) | payer MEDICARE, BC, SELFPAY | END 2025-09-19 13:10 | disposition home or self-care (01) | PROVIDERS: PCP Family Medicine; Visit Provider Family Medicine | DX: E53.8 Deficiency of other specified B group vitamins (principal); I50.9 Heart failure, unspecified; E55.9 Vitamin D deficiency, unspecified; I11.0 Hypertensive heart disease with heart failure | CPT/HCPCS: 80048; 82306; 82607; 83735 ==